=== PATIENT | female | born 1965 | race Caucasian/White ===

== ENCOUNTER 2017-06-24 07:17 | Outpatient (CLI) | payer BC | END 2017-06-24 07:18 | disposition home or self-care (01) | LOC: BICRAD 07:17 | PROVIDERS: ATTEND Specialist | DX: M19.042 Primary osteoarthritis, left hand (principal); M19.041 Primary osteoarthritis, right hand ==

== ENCOUNTER 2017-07-19 14:07 | Outpatient (CLI) | payer BC | END 2017-07-19 14:08 | disposition home or self-care (01) | LOC: BICMAMMO 14:07 | PROVIDERS: ATTEND Specialist | DX: Z12.31 Encounter for screening mammogram for malignant neoplasm of breast (principal); Z80.3 Family history of malignant neoplasm of breast | CPT/HCPCS: 77063; 77067 ==

== ENCOUNTER 2017-09-07 14:38 | Observation (INO) | payer BC ==
[2017-09-07 15:59] VITALS: BMI 32.9
[2017-09-07] MEDS ORDERED: Ondansetron HCl/PF 4 MG/2 ML Vial SLOW IVP PRN (17:02)
[2017-09-07] MEDS ORDERED: ALPRAZolam 0.25 MG TAB PO PRN (17:03)
[2017-09-07] MEDS ORDERED: Acetaminophen 325 MG TAB PO PRN (17:03)
[2017-09-07 17:15] LABS: #Basophils 0.1 thou/uL (0.0-0.2); #Eosinphils 0.1 thou/uL (0.0-0.7); #Lymphocytes 3.6 thou/uL (1.20-3.40); #Monocytes 0.5 thou/uL (0.11-0.59); #Neutrophils 4.5 thou/uL (1.40-6.50); %Eosinophils 1.3 % (0.0-10.0); %Lymphocytes 40.9 % (21.0-51.0); %Monocytes 5.9 % (0.0-10.0); %Neutrophils 50.9 % (42.0-75.0); Hemoglobin 14.5 g/dL (12.0-16.0); Mean Corpuscular HGB CONC 34.5 g/dL (32.0-36.0); Mean Corpuscular Hemoglobin 32.2 pg (27.0-31.0); Mean Corpuscular Volume 93.3 fl (81.0-99.0); Mean Platelet Volume 6.6 fL (7.4-10.4); Platelet Count 340 thou/uL (130-400); RBC Distribution Width 11.3 % (11.5-14.5); Red Blood Cell (RBC) Count 4.49 mill/uL (4.20-5.40); White Blood Cell (WBC) Count 8.8 thou/uL (4.8-10.8)
[2017-09-07 17:36] LABS: ALT (SGPT) 32 U/L (8-55); AST (SGOT) 27 U/L (5-34); Albumin 4.2 g/dL (3.5-5.0); Alkaline Phosphatase 81 U/L (40-150); Anion Gap 18 mmol/L (10-20); BUN (Urea Nitrogen) 10 mg/dL (7.0-18.7); Bilirubin, Total 0.7 mg/dL (0.2-1.2); Calc. Creatinine Clearance 117 mL/min (70-130); Calcium 9.8 mg/dL (7.8-10.44); Carbon Dioxide 25 mmol/L (22-29); Chloride 99 mmol/L (98-107); Estimated GFR-MDRD 72; Globulin 3.3 g/dL (2.4-3.5); Glucose 87 mg/dL (70-105); Potassium 3.6 mmol/L (3.5-5.1); Protein, Total 7.5 g/dL (6.0-8.3); Sodium 138 mmol/L (136-145)
--- NOTE | 2017-09-07 18:22 | CT ---
CT OF BRAIN PERFORMED WITHOUT CONTRAST ENHANCEMENT: History: Dizziness, syncope. FINDINGS: The ventricular and cisternal system is within normal limits. There are no signs of intracerebral hem orrhage or extraaxial fluid collections. The mastoid air cells and visualized sinuses are clear. IMPRESSION: No acute intracranial abnormalities. POS: [facility]
[2017-09-07 18:30] LABS: Bilirubin Negative (Negative); Blood, Urine Negative (Negative); Clarity CLEAR (Clear); Glucose, Urine (Dipstick) Negative (Negative); Leukocyte Negative (Negative); Nitrite Negative (Negative); Protein, Urine (Dipstick) Negative (Neg-Trace); Specific Gravity, Urine 1.014 (1.002-1.036); Urobilinogen 0.2 mg/dL (0.2-1.0)
[2017-09-07] MEDS: Sodium Chloride 0.9% 1,000 ML IV SCH (18:34)
[2017-09-07] MEDS: Meclizine HCl 25 MG TAB PO SCH (21:17)
[2017-09-08] MEDS: Sodium Chloride 0.9% 1,000 ML IV SCH ×3 (02:26→19:29)
[2017-09-08] MEDS ORDERED: Levothyroxine 150 MCG TAB PO SCH (06:00)
[2017-09-08] MEDS: Levothyroxine 175 MCG TAB PO SCH (06:18)
--- NOTE | 2017-09-08 07:42 | HP ---
This is AYESHA Norton-Devendra, dictating for Matt Ellsworth M.D. REASON FOR ADMISSION: Nausea, vomiting, diarrhea, dehydration and dizziness. HISTORY OF PRESENT ILLNESS: This is a pleasant 51-year-old female with history of multiple medical p roblems to include hypertension, insomnia, and hypothyroidism. She presents with a 4-day history of nausea, vomiting, diarrhea, and unable to keep anything down. More recently, she has been dizzy. Sh e states she feels like she is dehydrated and does not feel like she cannot eat or drink anything. F or this reason, she is being admitted to hospital for further evaluation and treatment. She denies any chest, arm or back pain. She also denies any syncopal or near syncopal episodes. PAST MEDICAL HISTORY: 1. Hypertension. 2. Hyperlipidemia. 3. Chronic sinus infections. 4. Hypothyroidism. 5. Depression. 6. Autoimmune disorder. 7. . 8. Asthma. 9. 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 PAST SURGICAL HISTORY: 1. He had balloon procedure with Dr. Gordon 2006 and March 2008. 2. Hysterectomy and bladder suspension 2003. 3. Right knee surgery in 1998. 4. Carpal tunnel surgery 2003. 5. Tonsillectomy in 1972. 6. Abdominal infection in 2008. 7. Cholecystitis in 2008. 8. L5 nerve injection in 2010. 9. Sinus surgery in 2006 and 2008, cystoscopy in June 2012. 10. Surgery for abdominal infection in 2008. 11. Cystoscopy in 2010. 12. Right hip replacement in 2015. FAMILY HISTORY: Father from heart failure. Mother from heart disease and hyperten luis alfredo. SOCIAL HISTORY: She does not smoke. She does not drink alcohol. She is not . She did smoke but quit in 1997. REVIEW OF SYSTEMS: General: Admits to weakness, fatigue, and dizziness. No fever or chills. HEENT : No diplopia, amaurosis fugax, sore throat or hoarseness. Cardiovascular: No chest, arm or back p ain. Pulmonary: No PE, cough, hemoptysis. Gastrointestinal: See history of present illness. Magy tourinary: No dysuria, nocturia, oliguria or polyuria. Endocrine: No polyphagia, polydipsia or hea t or cold intolerance. Musculoskeletal: Admits to arthralgia. No lupus or myopathy. Neurologic: No history of TIA or seizure. All systems are negative. PHYSICAL EXAMINATION: GENERAL APPEARANCE: Pleasant female who appears to be in no acute distress. She is pale, though how ever, she is weak. VITAL SIGNS: Her blood pressure 150/70, pulse 70, respirations 18, afebrile. NECK: Supple with no increased JVP or carotid bruit. Carotid had good upstroke with no thyromegaly. COR: Regular rate and rhythm with normal first and heart sounds normal. No murmur, S3, S4, or thril ls. CHEST: Symmetrical. Clear to auscultation and percussion. ABDOMEN: Soft, nontender with normoactive bowel sounds. There is no abdominal bruit. NEUROLOGIC: She is awake, alert, and oriented to person, place, and time. ASSESSMENT: 1. Dehydration. 2. Nausea, vomiting, diarrhea. 3. Vertigo. PLAN: 1. The patient will be admitted where lab will be obtained as well as stool studies. We will also c heck Helicobacter pylori. 2. We will begin IV fluids at 125 mL an hour. 3. We will begin Zofran IV as well as meclizine. Also, we will obtain a CT of the head. The patien t verbalized understanding. All questions answered to satisfaction.
[2017-09-08] MEDS ORDERED: ALPRAZolam 0.25 MG TAB PO PRN (08:02)
[2017-09-08] MEDS ORDERED: PREMPRO PO SCH (09:00)
[2017-09-08] MEDS: Hydroxychloroquine Sulfate 200 MG TAB PO SCH ×2 (09:39→20:28)
[2017-09-08] MEDS: Hydrochlorothiazide 25 MG TAB PO SCH (09:39)
[2017-09-08] MEDS: Meclizine HCl 25 MG TAB PO SCH ×3 (09:40→20:28)
[2017-09-08] MEDS: Triamterene/Hydrochlorothiazid 75 mg/50 mg Tablet PO SCH (09:40)
[2017-09-08] MEDS: Mexiletine HCl 150 MG CAP PO SCH ×2 (10:12→20:28)
[2017-09-08] MEDS: Estrogens, Conjugated 0.3 MG TAB PO SCH ×2 (11:02→14:34)
[2017-09-08] MEDS ORDERED: metroNIDAZOLE 500 MG in Premix Bag 1 BAG IVPB SCH (22:30)
[2017-09-09] MEDS: Sodium Chloride 0.9% 1,000 ML IV SCH ×3 (04:37→20:40)
[2017-09-09 04:58] LABS: #Basophils 0.1 thou/uL (0.0-0.2); #Eosinphils 0.2 thou/uL (0.0-0.7); #Monocytes 0.6 thou/uL (0.11-0.59); #Neutrophils 4.5 thou/uL (1.40-6.50); %Basophils 0.8 % (0.0-1.0); %Eosinophils 1.9 % (0.0-10.0); %Monocytes 7.5 % (0.0-10.0); %Neutrophils 53.8 % (42.0-75.0); Hemoglobin 13.1 g/dL (12.0-16.0); Mean Corpuscular HGB CONC 35.2 g/dL (32.0-36.0); Mean Corpuscular Hemoglobin 32.9 pg (27.0-31.0); Mean Corpuscular Volume 93.6 fl (81.0-99.0); Mean Platelet Volume 6.9 fL (7.4-10.4); Platelet Count 316 thou/uL (130-400); RBC Distribution Width 11.3 % (11.5-14.5); Red Blood Cell (RBC) Count 3.99 mill/uL (4.20-5.40); White Blood Cell (WBC) Count 8.3 thou/uL (4.8-10.8)
[2017-09-09 05:40] LABS: Anion Gap 9 mmol/L (10-20); BUN (Urea Nitrogen) 8 mg/dL (7.0-18.7); Calc. Creatinine Clearance 130 mL/min (70-130); Calcium 8.2 mg/dL (7.8-10.44); Carbon Dioxide 27 mmol/L (22-29); Chloride 105 mmol/L (98-107); Estimated GFR-MDRD 81; Glucose 76 mg/dL (70-105); Potassium 3.4 mmol/L (3.5-5.1); Sodium 138 mmol/L (136-145)
[2017-09-09] MEDS ORDERED: metroNIDAZOLE 500 MG in Premix Bag 1 BAG IVPB SCH (06:00)
[2017-09-09] MEDS: Levothyroxine 175 MCG TAB PO SCH ×2 (06:05→09:28)
[2017-09-09] MEDS: Estrogens, Conjugated 0.3 MG TAB PO SCH (09:29)
[2017-09-09] MEDS: Hydrochlorothiazide 25 MG TAB PO SCH (09:29)
[2017-09-09] MEDS: Mexiletine HCl 150 MG CAP PO SCH ×2 (09:29→22:08)
[2017-09-09] MEDS: Hydroxychloroquine Sulfate 200 MG TAB PO SCH ×2 (09:30→20:41)
[2017-09-09] MEDS: Potassium Chloride 10 MEQ TAB PO SCH (09:31)
[2017-09-09] MEDS: metroNIDAZOLE 500 MG TAB PO SCH ×3 (09:31→20:41)
[2017-09-09] MEDS: Meclizine HCl 25 MG TAB PO SCH ×3 (09:31→20:41)
[2017-09-09] MEDS: Triamterene/Hydrochlorothiazid 75 mg/50 mg Tablet PO SCH (09:31)
--- NOTE | 2017-09-09 11:29 | PRG ---
DATE OF SERVICE: 09/09/2017. SUBJECTIVE: The patient had a good night. She had a little bit of diarrhea, but she is tolerating h er spray and tolerating her gel this morning. PHYSICAL EXAMINATION: VITAL SIGNS: Her blood pressure is 139/60, pulse 70, respirations 18, she is afebrile. NECK: Supple with no increased JVP or carotid bruit. Carotid had good upstroke with no thyromegaly. COR: Regular rate and rhythm. CHEST: Symmetrical. Clear to auscultation and percussion. ABDOMEN: Soft, nontender with normoactive bowel sounds. No bruit or organomegaly. EXTREMITIES: No edema or cyanosis. Palpable pedal pulses. SKIN: There is no evidence of ulceration, lesion, or rash. NEUROLOGIC: She is awake, alert, and oriented to person, place, and time. ASSESSMENT: 1. Clostridium difficile. 2. Vertigo, improved. 3. Dehydration. 4. Hypokalemia. PLAN: I will continue the same treatment that is going right now. We will add one dose of potassium by mouth and check her lab in the morning. Hopefully, we can switch her Flagyl to by mouth tomorrow and then going home in the next day or so. The patient verbalized understanding. All questions ans wered to satisfaction. This is AYESHA Norton-Devendra dictating for Dr. Matt Ellsworth.
[2017-09-10 04:54] LABS: ALT (SGPT) 28 U/L (8-55); AST (SGOT) 24 U/L (5-34); Albumin 3.3 g/dL (3.5-5.0); Alkaline Phosphatase 64 U/L (40-150); Anion Gap 13 mmol/L (10-20); BUN (Urea Nitrogen) 6 mg/dL (7.0-18.7); Bilirubin, Total 0.4 mg/dL (0.2-1.2); Calc. Creatinine Clearance 128 mL/min (70-130); Calcium 8.5 mg/dL (7.8-10.44); Carbon Dioxide 23 mmol/L (22-29); Chloride 105 mmol/L (98-107); Estimated GFR-MDRD 79; Globulin 2.4 g/dL (2.4-3.5); Glucose 96 mg/dL (70-105); Potassium 3.3 mmol/L (3.5-5.1); Protein, Total 5.7 g/dL (6.0-8.3); Sodium 138 mmol/L (136-145)
[2017-09-10] MEDS: Sodium Chloride 0.9% 1,000 ML IV SCH (05:59)
[2017-09-10] MEDS: Levothyroxine 175 MCG TAB PO SCH (06:00)
[2017-09-10 08:11] VITALS: BP 173/75; TEMP 97.5
[2017-09-10] MEDS: Triamterene/Hydrochlorothiazid 75 mg/50 mg Tablet PO SCH (08:24)
[2017-09-10] MEDS: Potassium Chloride 10 MEQ TAB PO SCH (08:24)
[2017-09-10] MEDS: Hydroxychloroquine Sulfate 200 MG TAB PO SCH (08:24)
[2017-09-10] MEDS: Hydrochlorothiazide 25 MG TAB PO SCH (08:24)
[2017-09-10] MEDS: metroNIDAZOLE 500 MG TAB PO SCH (08:25)
[2017-09-10] MEDS: Meclizine HCl 25 MG TAB PO SCH (08:25)
[2017-09-10 20:11] LABS: H. pylori IgA ABS Less than 9.0 units (0.0-8.9); H. pylori IgG ABS 0.19 (0.00-0.79); H. pylori IgM ABS Less than 9.0 units (0.0-8.9)
== END 2017-09-10 09:42 | disposition home or self-care (01) ==
LOC: 2SW 14:38
PROVIDERS: ADMIT Specialist; ATTEND Specialist
DX: A04.72 Enterocolitis due to Clostridium difficile, not specified as recurrent (principal); E86.0 Dehydration; I10 Essential (primary) hypertension; E78.5 Hyperlipidemia, unspecified; E03.9 Hypothyroidism, unspecified; G60.9 Hereditary and idiopathic neuropathy, unspecified; E87.6 Hypokalemia; F32.9 Major depressive disorder, single episode, unspecified; J45.909 Unspecified asthma, uncomplicated; Z87.891 Personal history of nicotine dependence; Z88.0 Allergy status to penicillin; Z88.1 Allergy status to other antibiotic agents; Z79.899 Other long term (current) drug therapy
CPT/HCPCS: 36415; 70450; 80048; 80053; 81003; 85025; 87045; 87046; 87086; 87324; 87328; 87329; 87449; 87493; 87899; 96361; 96365; 96366; A4216; G0378

== ENCOUNTER 2017-12-07 10:11 | Outpatient (CLI) | payer BC ==
--- NOTE | 2017-12-07 11:56 | ULT ---
HEPATIC SONOGRAM WITH DUPLEX EVALUATION: Date: 12/07/17 HISTORY: Abnormal liver function tests. Abdominal pain. FINDINGS: Gallbladder is surgically absent. Common duct is 0.4 cm. Liver is heterogeneous without focal mass or intrahepatic biliary dilatation. No free fluid. Spleen is 8.0 cm. Good color and spectral Doppler flow within the splenic and hepatic arteries. Portal venous flow is t owards the liver. Hepatic venous flow is towards the IVC. IMPRESSION: 1. Status post cholecystectomy. 2. No sonographic evidence of portal venous hypertension. POS: [facility]
== END 2017-12-07 10:12 | disposition home or self-care (01) ==
LOC: SCSULT 10:11
PROVIDERS: ATTEND Internal Medicine Gastroenterology
DX: R79.89 Other specified abnormal findings of blood chemistry (principal); Z90.49 Acquired absence of other specified parts of digestive tract
CPT/HCPCS: 76705

== ENCOUNTER 2019-04-11 11:08 | Day surgery (SDC) | payer BC ==
[2019-04-10 11:30] VITALS: BMI 32.9
[2019-04-11 12:56] LABS: Anion Gap 12 mmol/L (10-20); BUN (Urea Nitrogen) 13 mg/dL (9.8-20.1); Calc. Creatinine Clearance 117 mL/min (70-130); Calcium 9.2 mg/dL (7.8-10.44); Carbon Dioxide 29 mmol/L (22-29); Chloride 100 mmol/L (98-107); Estimated GFR-MDRD 73; Glucose 87 mg/dL (70-105); Potassium 3.6 mmol/L (3.5-5.1); Sodium 137 mmol/L (136-145)
[2019-04-11] MEDS ORDERED: Fentanyl 100 MCG/2 ML VIAL ONE (14:20)
[2019-04-11] MEDS ORDERED: Sodium Chloride 0.9% 10 ML ONE (14:51)
[2019-04-11] MEDS ORDERED: Lidocaine 1% (PF) 30 ML VIAL ONE (14:51)
[2019-04-11] MEDS ORDERED: Dexamethasone 20 MG/5 ML VIAL ONE (14:51)
[2019-04-11] MEDS ORDERED: PROPOFOL 20 ML ONE (16:10)
--- NOTE | 2019-04-11 23:05 | OP ---
DATE OF PROCEDURE: 04/11/2019 PREOPERATIVE DIAGNOSES: 1. Complex regional pain syndrome, bilateral lower extremity, G90.523. 2. Chronic pain syndrome, G89.4. POSTOPERATIVE DIAGNOSES: 1. Complex regional pain syndrome, bilateral lower extremity, G90.523. 2. Chronic pain syndrome, G89.4. PROCEDURE PERFORMED: 1. Spinal column stimulator battery implants. 2. Spinal column stimulator lead implant x4. SPECIMEN: Nothing. ESTIMATED BLOOD LOSS: 5 mL. PROCEDURE IN DETAIL: The patient was taken to the procedure room, placed prone on the procedure room table. A time-out was performed. The back was prepped with DuraPrep and sterile drapes were applied. Using fluoroscopy, we visualized the L5-S1 interspace with fluoroscopy. We anesthetized the skin as to make a paramedian trajectory to the L5-S1 interspace. We gained access to the epidural space using loss of resistance air. We inserted a dorsal root ganglion lead with a sheath into the needle and into the epidural space and gently guided in out of the L5 foramen. Once lead was outside the foramina, the sheath was retracted and then a double loop was formed as an anchor. The sheath was removed leaving the lead intact. A scalpel was used to make a small incision by the needle. The needle was then removed. The same procedure was performed for bilateral L5 as well as the bilateral S1 foramen. We then anesthetized the right upper buttock, made a horizontal incision and bluntly dissected this down to Anushka's fascia. We made a pocket for the battery. We used a tunneling device to tunnel the leads to the battery. They were connected to the battery and all these were torqued down to affix the leads to the battery. Impedances were checked which were all good. The battery was left inside the pocket. We approximated the fascial layer using 2-0 Vicryl suture in a simple interrupted fashion and then 3-0 Vicryl Rapide was used for a subcuticular stitch on the battery site. All wounds were occluded with Dermabond and sterile dressing was applied over this. Job ID: [id number]
--- NOTE | 2019-04-12 15:16 | RAD ---
Exam: Intraprocedure fluoroscopy HISTORY: Dorsal column stimulator placement FINDINGS: 2 fluoroscopic views demonstrate stimulator leads projecting over the sacrum and inferior m ost lumbar type vertebra IMPRESSION: Intraprocedure fluoroscopy as above
== END 2019-04-11 17:50 | disposition home or self-care (01) ==
LOC: SDC 11:08
PROVIDERS: ATTEND Specialist
PROC: 0JH70BZ Insertion of Single Array Stimulator Generator into Back Subcutaneous Tissue and Fascia, Open Approach (ICD-10-PCS; principal; 2019-04-11)
PROC: 00HU0MZ Insertion of Neurostimulator Lead into Spinal Canal, Open Approach (ICD-10-PCS; principal; 2019-04-11)
DX: G89.4 Chronic pain syndrome (principal); G90.523 Complex regional pain syndrome I of lower limb, bilateral; I10 Essential (primary) hypertension; E03.9 Hypothyroidism, unspecified; E78.5 Hyperlipidemia, unspecified; Z87.891 Personal history of nicotine dependence; Z88.0 Allergy status to penicillin; Z88.8 Allergy status to other drugs, medicaments and biological substances
CPT/HCPCS: 72100; 76000; 80048; 93005; 93010; C1767; J1100; J2001; J2704; J3010; J3370

== ENCOUNTER 2019-06-15 13:28 | Outpatient (CLI) | payer BC ==
--- NOTE | 2019-06-15 15:05 | MRI ---
MRI OF RIGHT KNEE PERFORMED WITHOUT CONTRAST ENHANCEMENT: HISTORY: Injury of right knee. FINDINGS: The anterior as well as posterior cruciate ligaments are intact. The medial and lateral menisci are normal in shape and appearance. The medial and lateral collateral ligaments as well as the iliotibial band regions are normal. There are grade IV chondromalacia changes involving the lateral facet of the patella. There is subch ondral edema or cystic change seen. Medial and lateral patellar retinaculum and quadriceps and espitia lar tendons are unremarkable. There is fluid just deep to the patellar tendon within Hoffa's fat. T here are some minimal edema changes involving the medial head of the gastrocnemius muscle which could indicate a very minimal strain. IMPRESSION: 1. No evidence of meniscal or cruciate ligament injury. 2. Suggestion of some minimal strain related to the medial head of the gastrocnemius muscle. 3. Grade IV chondromalacia changes of the lateral facet of the patella. POS: [facility]
== END 2019-06-15 13:29 | disposition home or self-care (01) ==
LOC: MRI 13:28
PROVIDERS: ATTEND Family Medicine Sports Medicine
DX: S80.01XA Contusion of right knee, initial encounter (principal); M22.41 Chondromalacia patellae, right knee

== ENCOUNTER 2020-05-10 11:52 | Emergency (ER) | payer BC ==
--- NOTE | 2020-05-10 12:15 | RAD ---
Exam: Chest one view HISTORY:Dyspnea. COVID positive patient. Comparison: 10/31/2018 FINDINGS: Cardiac silhouette: Normal Aorta: Unremarkable Pulmonary vessels: Normal Costophrenic angles: Clear LUNGS: Multifocal interstitial and alveolar opacities. Pneumothorax: None Osseous abnormalities: None IMPRESSION: Multi lobar COVID pneumonia.
[2020-05-10 12:33] LABS: #Eosinphils 0.1 thou/uL (0.0-0.7); #Lymphocytes 0.6 thou/uL (1.20-3.40); #Monocytes 0.5 thou/uL (0.11-0.59); #Neutrophils 8.8 thou/uL (1.40-6.50); %Basophils 0.2 % (0.0-1.0); %Eosinophils 0.7 % (0.0-10.0); %Lymphocytes 6.4 % (21.0-51.0); %Monocytes 4.7 % (0.0-10.0); Hemoglobin 12.8 g/dL (12.0-16.0); Mean Corpuscular HGB CONC 34.3 g/dL (32.0-36.0); Mean Corpuscular Hemoglobin 31.4 pg (27.0-31.0); Mean Corpuscular Volume 91.6 fL (78.0-98.0); Mean Platelet Volume 7.2 fL (7.4-10.4); Platelet Count 666 thou/uL (130-400); RBC Distribution Width 12.4 % (11.5-14.5); Red Blood Cell (RBC) Count 4.08 mill/uL (4.20-5.40)
[2020-05-10 12:39] LABS: INR-International Normal Ratio 1.3; Prothrombin Time 16.1 sec (12.0-14.7)
[2020-05-10 12:49] LABS: PTT 29.6 sec (22.9-36.1)
[2020-05-10 12:59] LABS: ALT (SGPT) 23 U/L (8-55); AST (SGOT) 39 U/L (5-34); Albumin 3.1 g/dL (3.5-5.0); Alkaline Phosphatase 78 U/L (40-110); Anion Gap 20 mmol/L (10-20); BUN (Urea Nitrogen) 34 mg/dL (9.8-20.1); Bilirubin, Total 0.7 mg/dL (0.2-1.2); Calc. Creatinine Clearance 0 mL/min (70-130); Calcium 8.7 mg/dL (7.8-10.44); Carbon Dioxide 22 mmol/L (22-29); Chloride 100 mmol/L (98-107); Globulin 4.4 g/dL (2.4-3.5); Glucose 94 mg/dL (70-105); Lipase 44 U/L (8-78); Protein, Total 7.5 g/dL (6.0-8.3); Sodium 139 mmol/L (136-145)
[2020-05-10 13:06] LABS: Potassium 2.9 mmol/L (3.5-5.1)
[2020-05-10] MEDS ORDERED: Potassium Chloride 20 MEQ TAB ONE ×2 (13:10→13:34)
[2020-05-10] MEDS ORDERED: Dexamethasone 4 mg/ml Vial ONE (13:34)
[2020-05-10 15:52] LABS: Bilirubin Negative (Negative); Blood, Urine Negative (Negative); Clarity Clear (Clear); Glucose, Urine (Dipstick) Normal (Negative); Ketone, Urine 20 mg/dL (Negative); Leukocyte Negative Leu/uL (Negative); Nitrite Negative (Negative); Protein, Urine (Dipstick) 20 mg/dL (Neg-Trace); Specific Gravity, Urine 1.022 (1.002-1.036); Urobilinogen Normal mg/dL (Less than 2); pH, Urine 5.5 (5.0-9.0)
== END 2020-05-10 11:55 | disposition home or self-care (01) ==
LOC: ERS 11:52
DX: U07.1 COVID-19 (principal); E03.9 Hypothyroidism, unspecified; I10 Essential (primary) hypertension; J45.909 Unspecified asthma, uncomplicated; Z79.899 Other long term (current) drug therapy
CPT/HCPCS: 71045; 80053; 81003; 83690; 84484; 85025; 85610; 85730; 93005; 96374; J1100

== ENCOUNTER 2021-06-11 13:26 | Outpatient (CLI) | payer BC | END 2021-06-11 13:27 | disposition home or self-care (01) | LOC: MRI 13:26 | PROVIDERS: ATTEND Podiatrist Foot & Ankle Surgery | DX: M25.372 Other instability, left ankle (principal); Z98.890 Other specified postprocedural states ==

== ENCOUNTER 2022-06-09 10:37 | Outpatient (CLI) | payer BC | END 2022-06-09 10:38 | disposition home or self-care (01) | LOC: BICMAMMO 10:37 | PROVIDERS: ATTEND Specialist | DX: Z12.31 Encounter for screening mammogram for malignant neoplasm of breast (principal); Z80.3 Family history of malignant neoplasm of breast | CPT/HCPCS: 77063; 77067 ==

== ENCOUNTER 2023-02-16 15:02 | Outpatient (CLI) | payer BC | END 2023-02-16 15:03 | disposition home or self-care (01) | LOC: BICMAMMO 15:02 | PROVIDERS: ATTEND Specialist | DX: Z13.820 Encounter for screening for osteoporosis (principal); M85.9 Disorder of bone density and structure, unspecified | CPT/HCPCS: 77080 ==